=== PATIENT | male | born 2000 | race Caucasian/White ===

== ENCOUNTER 2023-09-06 09:26 | Emergency (ER) | payer OTHER ==
[~2023-09-06] VITALS: Ht 182.9 cm; Wt 74.5 kg
[2023-09-06 09:38] VITALS: TEMP 98.9
[2023-09-06 10:45] LABS: HEMATOCRIT 45.6 % (42.0-52.0); HEMOGLOBIN 15.9 g/dl (13.5-18.0); MEAN CELL VOLUME 92 fl (80.0-100.0); MEAN CORPUSCULAR HEMOGLOBIN 32 pg (27-31); MEAN CORPUSCULAR HGB CONC 35 g/dl (33.0-37.0); MEAN PLATELET VOLUME 10.8 fl (7.4-10.4); PLATELET COUNT 141 K/mm3 (130-400); RED BLOOD COUNT 4.98 M/mm3 (4.20-5.60); REDCELL DISTRIBUTION WIDTH-CV 11.2 % (11.5-14.5)
[2023-09-06 11:02] LABS: ALBUMIN 4.1 gm/dL (3.5-5.0); BILIRUBIN,TOTAL 1.7 mg/dL (0.2-1.2); CALCIUM 10.1 mg/dL (8.4-10.2); CREATININE, serum 0.85 mg/dL (0.72-1.25); POTASSIUM 3.9 mmol/L (3.5-4.5); TOTAL PROTEIN 7.6 gm/dL (6.2-8.1)
[2023-09-06 11:13] LABS: BAND 10 % (0-10); LYMPHOCYTE 10 % (20.0-51.0); NEUTROPHILS 70 % (42.0-75.2); PLATELET ESTIMATE NORMAL (NORMAL)
[2023-09-06] MEDS ORDERED: AMOXICILLIN 8751 TAB PO (12:41)
[2023-09-06 12:59] VITALS: BP 144/86; PULSE 81
== END 2023-09-06 13:00 | disposition home or self-care (01) ==
LOC: COL.ER 09:26
PROVIDERS: Nurse Practitioner Family
DX: K04.7 Periapical abscess without sinus (principal); F17.210 Nicotine dependence, cigarettes, uncomplicated; F17.290 Nicotine dependence, other tobacco product, uncomplicated
CPT/HCPCS: J0295; J2270; J2405; J7030; Q9967